=== PATIENT | male | born 1970 | race Hispanic/Latino ===

== ENCOUNTER 2024-05-22 20:06 | Emergency (ER) | payer OTHER ==
[~2024-05-22] VITALS: Ht 177.8 cm; Wt 121.6 kg
[~2024-05-22 20:06] MED LIST: CEFDINIR300 MG PO
[2024-05-22] MEDS ORDERED: ondansetron HCL 4 MG/2 ML VIAL IV ONE (20:15)
[2024-05-22] MEDS ORDERED: PROPRANOLOL HCL MISC (20:17)
[2024-05-22] MEDS ORDERED: ADVIL200 M1 PO (20:18)
[2024-05-22] MEDS ORDERED: KETOROLAC TROMETHAMINE 30 MG/ML VIAL IV ONE (20:30)
[2024-05-22] MEDS ORDERED: LACTATED RINGER'S 1,000 ML IV ONE (20:30)
[2024-05-22 20:31] LABS: BASOPHILS 0.1 % (0-2); EOSINOPHILS 0.1 % (0-6); HEMATOCRIT 48.3 % (35.0-50.0); HEMOGLOBIN 16.8 g/dL (12.0-18.0); LYMPHOCYTES 5.3 % (24-44); MCH 31.6 (27-36); MCHC 34.8 g/dl (30-36); MONOCYTES 7.5 % (0-12); PLATELET COUNT 210 K/uL (140-440); RBC 5.32 M/ul (4.3-5.7); RDW 13.8 (10.5-15.0)
[2024-05-22 20:46] LABS: ALBUMIN 3.5 g/dL (3.4-5.0); ALBUMIN/GLOBULIN RATIO 0.8 (1.1-2.4); ANION GAP 12.7 (7-21); BILIRUBIN, TOTAL 0.6 mg/dL (0.2-1.0); BUN/CREATININE RATIO 17.92 (6.0-28.6); CALCIUM 8.5 mg/dL (8.5-10.1); CREATININE, SERUM 1.06 mg/dL (0.70-1.30); MAGNESIUM 2.1 mg/dL (1.8-2.4); POTASSIUM 3.7 mmol/L (3.5-5.1); PROTEIN, TOTAL 7.9 g/dL (6.4-8.2)
[2024-05-22 21:10] LABS: INFLUENZA B NAA NEGATIVE (NEGATIVE); RESPIRATORY SYNCYTIAL VIR NAA NEGATIVE (NEGATIVE)
[2024-05-22] MEDS ORDERED: ONDANSETRON ODT8 MG PO (21:23)
[2024-05-22] MEDS ORDERED: CYCLOBENZAPRINE10 MG PO (21:23)
[2024-05-22] MEDS ORDERED: CYCLOBENZAPRINE HCL 10 MG HOME.PACK PO ONE (21:30)
[2024-05-22] MEDS ORDERED: ONDANSETRON 4 MG HOME.PACK SL ONE (21:30)
[2024-05-22] MEDS ORDERED: OSELTAMIVIR PHOSPHATE 75 MG HOME.PACK PO ONE (21:30)
[2024-05-22 21:40] VITALS: BP 164/101
== END 2024-05-22 21:42 | disposition home or self-care (01) ==
LOC: ED 20:06
PROVIDERS: Family Medicine
DX: J10.1 Influenza due to other identified influenza virus with other respiratory manifestations (principal); I10 Essential (primary) hypertension; Z79.899 Other long term (current) drug therapy
CPT/HCPCS: 36415; 80053; 83735; 85025; 87502; 96374; 96375; 99284-25; A9270; J1885; J2405; J7121; U0002